=== PATIENT | female | born 1990 | race Caucasian/White ===

== ENCOUNTER 2016-12-24 15:15 | Emergency (ER) | payer OTHER ==
[~2016-12-24] VITALS: Ht 175.3 cm; Wt 110.9 kg
[2016-12-24] MEDS ORDERED: TOPAMAX100 MG PO (15:21)
[2016-12-24] MEDS ORDERED: EFFEXOR XR150 MG PO (15:22)
[2016-12-24] MEDS ORDERED: KLONOPIN0.5 M1 PO (15:22)
[2016-12-24] MEDS ORDERED: SYNTHROID100 MCG PO (15:23)
[2016-12-24] MEDS ORDERED: VYVANSE70 MG PO (15:23)
[2016-12-24] MEDS ORDERED: VALIUM5 MG PO (18:22)
[2016-12-24 18:33] VITALS: BP 124/85
== END 2016-12-24 18:33 | disposition home or self-care (01) ==
LOC: EME 15:15
DX: S16.1XXA Strain of muscle, fascia and tendon at neck level, initial encounter (principal); V43.52XA Car driver injured in collision with other type car in traffic accident, initial encounter; Y92.410 Unspecified street and highway as the place of occurrence of the external cause; M54.5 Low back pain; F17.200 Nicotine dependence, unspecified, uncomplicated
CPT/HCPCS: 72040; 72070; 99281; 99284

== ENCOUNTER 2017-01-14 22:19 | Emergency (ER) | payer OTHER ==
[~2017-01-14] VITALS: Ht 175.3 cm; Wt 108.9 kg
[~2017-01-14 22:19] MED LIST: EFFEXOR XR150 MG PO; KLONOPIN0.5 M1 PO; SYNTHROID100 MCG PO; TOPAMAX100 MG PO; VALIUM5 MG PO; VYVANSE70 MG PO
[2017-01-15] MEDS ORDERED: PERCOCET 5/31 TABLET PO (00:15)
[2017-01-15 00:29] VITALS: BP 123/74
== END 2017-01-15 00:30 | disposition home or self-care (01) ==
LOC: EME 22:19 → EXP 22:19
DX: M54.5 Low back pain (principal); V49.40XA Driver injured in collision with unspecified motor vehicles in traffic accident, initial encounter; F17.200 Nicotine dependence, unspecified, uncomplicated
CPT/HCPCS: 99281; 99284; J8540